=== PATIENT | female | born 1960 | race Caucasian/White ===

== ENCOUNTER 2023-04-03 11:34 | Outpatient (REF) | payer MEDICARE, MEDICAID, SELFPAY ==
[2023-04-03 14:32] LABS: Appearance Urine Cloudy; Color Urine Yellow; Glucose Urine UA Negative (Negative); Leukocyte Esterase Urine Large (3+) (Negative); Nitrite Urine Positive (Negative); PH 5.5 (5.0-9.0); Specific Gravity - Urine 1.015 (1.005-1.025); UMIC TRIGGER UACC YES; Urine Blood Large (3+) (Negative); Urine Ketones Negative (Negative); Urine Protein 30 (1+) mg/dL (Neg-Trace)
[2023-04-03 14:48] LABS: Bacteria Urine 1+ (None Seen); RBC Urine >20 /HPF (0-2); Squamous Epithelial Cell Urine 0-2 /HPF (0-2); UACC Culture Trigger YES; WBC Urine 21-50 /HPF (0-5)
== END 2023-04-03 11:35 | disposition home or self-care (01) ==
LOC: HO.HMGCLDS 11:34
PROVIDERS: PCP Family Medicine; Visit Provider Family Medicine
DX: R82.90 Unspecified abnormal findings in urine (principal)
CPT/HCPCS: 81001; 87086; 87088; 87186

== ENCOUNTER 2023-06-12 14:13 | Outpatient (REF) | payer MEDICARE, MEDICAID, SELFPAY ==
--- NOTE | 2023-06-12 16:44 | MHC.AU.HA3 ---
Hearing Instrument Follow-Up- Binaural Date of Visit: 06/12/23 Right Ear: Make, Model, Color, Serial Number: Karen Tillman AI 1600 ITC R SN: [id number] Color: [place] Felt Coverer Repair Warranty: 01/10/2025 Felt Coverer Loss and Damage Warranty: 01/10/2025 Battery Size: Rechargeable Type of Wax Guard: HearClear Dispensed By: [facility] Date of Fitting: December 2021 Left Ear: Make, Model, Color, Serial Number: Karen Tillman AI 1600 ITC R SN: [id number] Color: [place] Felt Coverer Repair Warranty: 01/10/2025 Felt Coverer Loss and Damage Warranty: 01/10/2025 Battery Size: Rechargeable Type of Wax Guard: HearClear Dispensed By: [facility] Date of Fitting: December 2021 Follow-Up Summary: Ivett has transferred care here from the audiology clinic at [facility]. She reported that her left hearing aid has been acting odd. Some times it will work, other times it will not. 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 Wax guards partially occluded. Cleaned hearing aids. Replaced wax guards and microphone covers. A listening check demonstrated that the hearing aids are in good working order. Performed a firmware update via [employer]. When attempting to confirm that cna ltc was working properly, the left hearing aid would not charge on either charging port. Right hearing aid able to charge on both ports. Left hearing aid sent to [facility] for in-warranty repair. Recommendations: Patient will be contacted when materials have arrived. Updated audiological evaluation - Scheduled for 10/14/2023 Diagnosis Code(s): Primary Diagnosis: H90.3 Bilateral Sensorineural Hearing Loss Signature: Provider: Claude Alvarez, [facility]
== END 2023-06-12 14:14 | disposition home or self-care (01) ==
LOC: HO.HAP 14:13
PROVIDERS: Visit Provider Family Medicine
DX: Z46.1 Encounter for fitting and adjustment of hearing aid (principal); H90.3 Sensorineural hearing loss, bilateral
CPT/HCPCS: 92593; 99499

== ENCOUNTER 2023-06-19 14:27 | Outpatient (REF) | payer MEDICARE, MEDICAID, SELFPAY ==
[2023-06-19 14:45] LABS: Appearance Urine Cloudy; Color Urine Dark Yellow; Glucose Urine UA Negative (Negative); Leukocyte Esterase Urine Large (3+) (Negative); Nitrite Urine Positive (Negative); PH 5.5 (5.0-9.0); Specific Gravity - Urine 1.025 (1.005-1.025); UMIC TRIGGER UA YES; Urine Blood Moderate (2+) (Negative); Urine Ketones Negative (Negative); Urine Protein 100 (2+) mg/dL (Neg-Trace)
[2023-06-19 14:58] LABS: Bacteria Urine 2+ (None Seen)
== END 2023-06-19 14:28 | disposition home or self-care (01) ==
LOC: HO.HVNA 14:27
PROVIDERS: Visit Provider Family Medicine
DX: R41.0 Disorientation, unspecified (principal)
CPT/HCPCS: 81001; 87086

== ENCOUNTER 2023-06-21 12:20 | Outpatient (REF) | payer MEDICARE, MEDICAID, SELFPAY | END 2023-06-21 12:21 | disposition home or self-care (01) | LOC: HO.HAP 12:20 | PROVIDERS: Visit Provider Family Medicine | DX: Z13.89 Encounter for screening for other disorder (principal) ==

== ENCOUNTER 2023-07-08 13:18 | Outpatient (REF) | payer MEDICARE, MEDICAID, SELFPAY | END 2023-07-08 13:19 | disposition home or self-care (01) | LOC: HO.HAP 13:18 | PROVIDERS: Visit Provider Pediatrics | DX: Z13.89 Encounter for screening for other disorder (principal) ==

== ENCOUNTER 2023-07-09 12:55 | Outpatient (REF) | payer MEDICARE, MEDICAID, SELFPAY | END 2023-07-09 12:56 | disposition home or self-care (01) | LOC: HO.HAP 12:55 | PROVIDERS: Visit Provider Family Medicine | DX: Z01.118 Encounter for examination of ears and hearing with other abnormal findings (principal); H90.3 Sensorineural hearing loss, bilateral | CPT/HCPCS: 92593; 92595; 99499; V5011 ==

== ENCOUNTER 2023-07-23 14:00 | Outpatient (REF) | payer MEDICARE, MEDICAID, SELFPAY | END 2023-07-23 14:01 | disposition home or self-care (01) | LOC: HO.HAP 14:00 | PROVIDERS: Visit Provider Family Medicine | DX: Z13.89 Encounter for screening for other disorder (principal) ==

== ENCOUNTER 2023-07-25 10:36 | Outpatient (REF) | payer MEDICARE, MEDICAID, SELFPAY | END 2023-07-25 10:37 | disposition home or self-care (01) | LOC: HO.HAP 10:36 | PROVIDERS: Visit Provider Family Medicine | DX: Z13.89 Encounter for screening for other disorder (principal) ==

== ENCOUNTER 2023-08-06 08:16 | Outpatient (REF) | payer MEDICARE, MEDICAID, SELFPAY | END 2023-08-06 08:17 | disposition home or self-care (01) | LOC: HO.HAP 08:16 | PROVIDERS: Visit Provider Family Medicine | DX: Z13.89 Encounter for screening for other disorder (principal) ==

== ENCOUNTER 2023-08-07 14:10 | Outpatient (REF) | payer MEDICARE, MEDICAID, SELFPAY | END 2023-08-07 14:11 | disposition home or self-care (01) | LOC: HO.HAP 14:10 | PROVIDERS: Visit Provider Family Medicine | DX: Z13.89 Encounter for screening for other disorder (principal) ==